=== PATIENT | male | born 1995 ===

== ENCOUNTER 2017-12-25 13:09 | Emergency (ER) | payer MEDICAID ==
[2017-12-25 13:25] VITALS: RESP 16; O2SAT 98
--- NOTE | 2017-12-25 16:19 | ED PDOC ---
HPI: Abdomen <Bertha Butterfieldya Kerri - Last Filed: 12/25/17 17:09> <Slick Gonsales - Last Filed: 12/25/17 21:08> Chief Complaint (Provider): Abdominal Pain History Per: Patient History/Exam Limitations: no limitations Onset/Duration Of Symptoms: Days (x3) Outside of [place] travel?: No Current Symptoms Are (Timing): Still Present Location Of Pain/Discomfort: Suprapubic Quality Of Discomfort: "Pain" Associated Symptoms: denies: Fever, Urinary Symptoms Exacerbating Factors: Movement Alleviating Factors: Other (lying or sitting down) <Clary Albarran Y - Last Filed: 12/26/17 22:05> Time Seen by Provider: 12/25/17 13:15 Chief Complaint (Nursing): Abdominal Pain Additional Complaint(s): 22 y/o male presents to the ED with lower abdominal pain. Patient states it began on Saturday night shortly after his work out. He claims he has been increasing his work out regimen and abdominal work. Patient states he has increased his protein intake and feels he is dehydrated. When he walks or stands he feels pain but denies any when lying or sitting down. Patient denies any problems with bowel movements, fever, or dysuria. PMD: Scar Mackay (Clary Albarran) Past Medical History <Tari Butterfielditanya Kerri - Last Filed: 12/25/17 17:09> <Slick Gonsales - Last Filed: 12/25/17 21:08> Reviewed: Historical Data, Nursing Documentation, Vital Signs - Medical History PMH: No Chronic Diseases - Surgical History Surgical History: No Surg Hx - Family History Family History: States: No Known Family Hx - Social History Current smoker - smoking cessation education provided: No Ex-Smoker (has not smoked in the last 12 months): No Alcohol: None Drugs: Denies <Clary Albarran Y - Last Filed: 12/26/17 22:05> Vital Signs: Last Vital Signs Temp 98.0 F 12/25/17 17:33 Pulse 74 12/25/17 17:33 Resp 16 12/25/17 17:33 BP 122/77 12/25/17 17:33 Pulse Ox 98 12/26/17 22:02 - Home Medications Home Medications: Ambulatory Orders Medication Instructions Recorded Amoxicillin 875 mg PO BID #14 tablet 10/28/16 Fluticasone Nasal [Flonase] 0.05 mg NS DAILY #1 spr 10/28/16 Dicyclomine [Bentyl] 20 mg PO Q12 PRN #20 tab 12/25/17 - Allergies Allergies/Adverse Reactions: Allergies Allergy/AdvReac Type Severity Reaction Status Date / Time No Known Allergies Allergy Verified 12/25/17 13:21 Review of Systems ROS Statement: Except As Marked, All Systems Reviewed And Found Negative Constitutional: Negative for: Fever Gastrointestinal: Positive for: Abdominal Pain (lower middle area). Negative for: Other (bowel movement issues) Genitourinary Male: Negative for: Dysuria <Clary Albarran Y - Last Filed: 12/26/17 22:05> Physical Exam - Reviewed Nursing Documentation Reviewed: Yes Vital Signs Reviewed: Yes - Physical Exam Appears: Positive for: Well, Non-toxic, No Acute Distress Head Exam: Positive for: ATRAUMATIC, NORMAL INSPECTION, NORMOCEPHALIC Skin: Positive for: Normal Color, Warm, Dry Eye Exam: Positive for: EOMI, Normal appearance, PERRL ENT: Positive for: Normal ENT Inspection Neck: Positive for: Normal, Painless ROM, Supple Cardiovascular/Chest: Positive for: Regular Rate, Rhythm. Negative for: Murmur Respiratory: Positive for: Normal Breath Sounds. Negative for: Respiratory Distress Gastrointestinal/Abdominal: Positive for: Normal Exam, Soft, Tenderness (slight suprapubic pain) Back: Positive for: Normal Inspection. Negative for: L CVA Tenderness, R CVA Tenderness, Vertebral Tenderness Extremity: Positive for: Normal ROM. Negative for: Pedal Edema, Deformity Neurologic/Psych: Positive for: Alert, Oriented (x3). Negative for: Motor/ Sensory Deficits <Clary Albarran Y - Last Filed: 12/26/17 22:05> - Laboratory Results Result Diagrams: 12/25/17 16:24 12/25/17 16:24 <Johnnie Butterfield - Last Filed: 12/25/17 17:09> - Laboratory Results Result Diagrams: 12/25/17 16:24 12/25/17 16:24 <Slick Gonsales - Last Filed: 12/25/17 21:08> - Laboratory Results Result Diagrams: 12/25/17 16:24 12/25/17 16:24 - ECG O2 Sat by Pulse Oximetry: 98 (RA) Pulse Ox Interpretation: Normal <Clary Albarran - Last Filed: 12/26/17 22:05> Medical Decision Making <Johnnie Butterfield - Last Filed: 12/25/17 17:09> <Slick Gonsales - Last Filed: 12/25/17 21:08> <Clary Albarran - Last Filed: 12/26/17 22:05> Medical Decision Making: Time: 13:21 Initial Impression: suprapubic pain rule out UTI vs r muscular skeletal pain Initial Plan: * CMP * CBC * Toradol 60 mg IM * Urine Culture * Uranalysis 17:[address] Butterfield pending urine labs and re-evaluation. Scribe Attestation: Documented by Richar Quigley acting as a scribe for Avis Toledo MD. Scribe Attestation: All medical record entries made by the Scribe were at my direction and personally dictated by me. I have reviewed the chart and agree that the record accurately reflects my personal performance of the history, physical exam, medical decision making, and the department course for this patient. I have also personally directed, reviewed, and agree with the discharge instructions and disposition. (Clary Albarran) Disposition <Johnnie Butterfield - Last Filed: 12/25/17 17:09> <Slick Gonsales - Last Filed: 12/25/17 21:08> - Patient ED Disposition Is Patient to be Admitted: Transfer of Care - Disposition Disposition: Transfer of Care Disposition Time: 17:00 Patient Signed Over To: Johnnie Butterfield <Clary Albarran - Last Filed: 12/26/17 22:05> - Clinical Impression Clinical Impression: Abdominal pain - Disposition Condition: STABLE Prescriptions: Dicyclomine [Bentyl] 20 mg PO Q12 PRN #20 tab PRN Reason: abdominal pain Instructions: Stomach Ache and Stomach Upset Forms: [facility] ([employer]), [facility] ED School/Work Excuse
[2017-12-25 16:33] LABS: BASO % 0.6 % (0.0-2.0); EOS # 0.2 K/uL (0.0-0.7); EOS % 3.2 % (0.0-4.0); HEMOGLOBIN 15.9 g/dL (12.0-18.0); LYMPH # 2.9 K/uL (1.0-4.3); LYMPH % 38.8 % (20.0-40.0); MEAN CELL VOLUME 87.8 fl (80.0-94.0); MEAN CORPUSCULAR HEMOGLOBIN 30.2 pg (27.0-31.0); MEAN CORPUSCULAR HGB CONC 34.4 g/dL (33.0-37.0); MEAN PLATELET VOLUME 9.3 fl (7.2-11.7); MONO # 0.7 K/uL (0.0-0.8); NEUT # 3.6 K/uL (1.8-7.0); NEUT % 48.4 % (50.0-75.0); NRBC % 0.1 % (0.0-0.0); RBC 5.25 Mil/uL (4.40-5.90); RED CELL DISTRIBUTION WIDTH 13.4 % (11.5-14.5); WHITE BLOOD COUNT 7.4 K/uL (4.8-10.8)
[2017-12-25 16:47] LABS: BLOOD UREA NITROGEN 18 mg/dl (9-20); GFR AFRICAN-AMERICAN > 60
[2017-12-25 16:48] LABS: ALB/GLOB RATIO 1.3 (1.0-2.1); ALBUMIN 4.5 g/dL (3.5-5.0); ALT/SGPT 54 U/L (21-72); AST/SGOT 26 U/L (17-59); CALCIUM 9.6 mg/dL (8.4-10.2); GFR NON-AFRICAN AMERICAN > 60
[2017-12-25 16:50] LABS: URINE BILIRUBIN NEGATIVE (NEGATIVE); URINE BLOOD SMALL (NEGATIVE); URINE CLARITY CLEAR (Clear); URINE COLOR YELLOW (YELLOW); URINE GLUCOSE (UA) NEG (Normal); URINE LEUKOCYTE ESTERASE NEG Leu/uL (Negative); URINE PROTEIN NEGATIVE (NEGATIVE); URINE UROBILINOGEN 0.2-1.0 mg/dL (0.2-1.0)
--- NOTE | 2017-12-25 17:21 | ED PDOC ---
- Laboratory Results Result Diagrams: 12/25/17 16:24 12/25/17 16:24 Interpretation Of Abn Labs: no acute - ECG O2 Sat by Pulse Oximetry: 98 (RA) Pulse Ox Interpretation: Normal - Progress ED Course And Treament: 1756: Stable. AAOx3. Pain still present on palpation periumbilical. Will ct. 1851: Dr. Gonsales to fu on ct. Disposition - Clinical Impression Clinical Impression: Abdominal pain - POA Present On Arrival: None - Disposition Disposition: Transfer of Care Disposition Time: 18:52 Condition: FAIR Patient Signed Over To: Slick Gonsales
[2017-12-25] MEDS ORDERED: Iohexol 240 (50 ml) PO ONE (18:18)
[2017-12-25] MEDS ORDERED: Iohexol 240 (50 ml) ONE (18:53)
[2017-12-25 19:33] VITALS: BP 122/77; PULSE 74; TEMP 98
[2017-12-25] MEDS ORDERED: Sodium Chloride 0.9% 100 ML ONE (21:02)
[2017-12-25] MEDS ORDERED: Iohexol 300 100 ML IJ ONE (21:02)
--- NOTE | 2017-12-26 11:26 | CT ---
PROCEDURE: CT Abdomen and Pelvis with contrast HISTORY: Abdominal pain COMPARISON: None. TECHNIQUE: Contrast dose: 95 cc Omnipaque 300 Radiation dose: Total exam DLP = 18531 mGy-cm. This CT exam was performed using one or more of the following dose reduction techniques: Automated exposure control, adjustment of the mA and/or kV according to patient size, and/or use of iterative reconstruction technique. FINDINGS: LOWER THORAX: Unremarkable. LIVER: Hepatic steatosis. No focal masses. No intrahepatic bile duct dilatation or perihepatic ascites. GALLBLADDER AND BILE DUCTS: Unremarkable. PANCREAS: Unremarkable. No gross lesion or ductal dilatation. SPLEEN: Unremarkable. ADRENALS: Unremarkable. No mass. KIDNEYS AND URETERS: Unremarkable. No hydronephrosis. No solid mass. VASCULATURE: Unremarkable. No aortic aneurysm. BOWEL: Diverticulosis without an acute inflammatory component or other associated pathologic process. APPENDIX: No abnormalities to suggest acute appendicitis. No right lower quadrant inflammatory processes identified. PERITONEUM: Unremarkable. No free fluid. No free air. LYMPH NODES: Unremarkable. No enlarged lymph nodes. BLADDER: Unremarkable. REPRODUCTIVE: Unremarkable. BONES: No acute fracture. OTHER FINDINGS: None. IMPRESSION: No acute findings related to/accounting for the clinical presentation. Additional benign and/or incidental findings described above. Concordant results (preliminary interpretation) provided by [employer]. Procedure Completed: 21:19 Preliminary ([facility]) Report: Dictated and Authenticated: 21:53 Final Interpretation: 11:24 December 26, 2017.
== END 2017-12-25 22:46 | disposition home or self-care (01) ==
LOC: H.ER 13:09
DX: R10.9 Unspecified abdominal pain (principal)
CPT/HCPCS: 74177; 80053; 81003; 85025; 87086; 96372; 99284; J1885; Q9966; Q9967